=== PATIENT | female | born 1950 | race Caucasian/White ===

== ENCOUNTER 2017-10-21 16:39 | Inpatient (IN) | payer MEDICARE, BC ==
[~2017-10-21] VITALS: Ht 157.5 cm; Wt 73.9 kg
--- NOTE | 2017-10-21 16:42 | NUR ---
BBRA FROM HOME, ACCDG TO PT'S NIECE PT BECAME ALTERED AFTER TAKING SEROQUEL FIRST THE TIME 50MG. BS-15 IN THE FIELD. PT IS ALERT AND ORINETED X 3 UPON ASSESSMENT. ONLY COMPLAINS OF FEEELING SLEEPY AND WEAK, AND THAT SHE IS THIRSTY. PT GOWNED AND PLACED ON CONT CARDIAC AND POX MONITORING. ALL NEEDS ARE ATTENDED, KEPT COMFORTABLE. WILL CONT TO MONITOR
[2017-10-21] MEDS ORDERED: IV NS 0.9% 1,000 ML BAG IV ONE (17:30)
--- NOTE | 2017-10-21 17:31 | NUR ---
PT WENTTO Addendum: 10/21/17 at 1732 by CLAIRE PT WENT TO CAT SCAN
[2017-10-21 18:00] LABS: APPEARANCE,URINE Clear (CLEAR); BILIRUBIN,URINE Negative (NEGATIVE); BLOOD, URINE Negative Ery/uL (NEGATIVE); COLOR,URINE Yellow (YELLOW); KETONES,URINE Negative (NEGATIVE); LEUKOCYTE ESTERASE ,URINE Trace (NEGATIVE); NITRITE, URINE Negative (NEGATIVE); PH,URINE 5.5 (5.0-8.0); PROTEIN,URINE Negative (NEGATIVE); UGLUCOSE Negative (NEGATIVE); UROBILINOGEN,URINE 0.2 EU/dL (0.2)
[2017-10-21 18:02] LABS: BACTERIA,URINE Few /HPF (None Seen); RBC,URINE NONE SEEN /HPF (0-2); SQUAMOUS EPITHELIAL CELL,UR Few /HPF (None Seen)
[2017-10-21 18:05] LABS: BASOPHILS % (AUTO) 0.2 % (0.0-2.0); HEMATOCRIT 32 % (33-45); HEMOGLOBIN 10.6 g/dL (11.5-14.8); LYMPHOCYTES # (AUTO) 0.6 /CMM (0.8-4.8); LYMPHOCYTES % (AUTO) 11.1 % (20.0-44.0); MEAN CORPUSCULAR HEMOGLOBIN 30 PG (26.0-33.0); MEAN CORPUSCULAR HGB CONC 33 g/dl (31.0-36.0); MEAN CORPUSCULAR VOLUME 90 fL (82-100); MONOCYTES # (AUTO) 0.3 /CMM (0.1-1.30); MONOCYTES % (AUTO) 5.9 % (2.0-12.0); NEUTROPHILS # (AUTO) 4.7 /CMM (1.8-8.9); NEUTROPHILS % (AUTO) 81.8 % (43.0-81.0); PLATELET COUNT (AUTO) 259 /CMM (150-450); RDW COEFFICIENT OF VARIATION 15.8 (11.5-15.0); RED BLOOD CELL COUNT(AUTO) 3.53 MIL/uL (4.0-5.2); WHITE BLOOD COUNT (AUTO) 5.7 K/uL (4.3-11.0)
[2017-10-21 18:19] LABS: CALCIUM, SERUM 7.9 mg/dL (8.5-10.1); CARBON DIOXIDE 29 mmol/L (21-32); CHLORIDE 106 mmol/L (98-107); CREATININE 0.7 mg/dL (0.6-1.3); GLUCOSE 142 mg/dL (74-106); POTASSIUM 3.9 mmol/L (3.5-5.1); SODIUM SERUM 138 mmol/L (136-145); UREA NITROGEN, BLOOD 28 mg/dL (7-18)
[2017-10-21 18:20] LABS: INR 0.88 (0.85-1.15)
[2017-10-21 18:25] LABS: ALANINE AMINOTRANSFERASE 32 U/L (12-78); ALBUMIN 2.7 g/dL (3.4-5.0); ALCOHOL, BLOOD < 3 mg/dL (0-0); ALKALINE PHOSPHATASE 62 U/L (46-116); ASPARTATE AMINOTRANSFERASE 20 U/L (15-37); BILIRUBIN,DIRECT 0.1 mg/dL (0.0-0.2); BILIRUBIN,TOTAL 0.2 mg/dL (0.2-1.0); TOTAL PROTEIN, SERUM 5.6 g/dL (6.4-8.2)
[2017-10-21 18:34] LABS: ACETAMINOPHEN < 2 ug/ml (10-30); SALICYLATE 0.9 mg/dL (2.8-20.0)
--- NOTE | 2017-10-21 19:00 | NUR ---
RECIEVED REPORT FROM IRWIN LEACH FOR [facility].
--- NOTE | 2017-10-21 19:05 | NUR ---
PAGED DR. RONNA HEARD IS ENTERTAINMENT REPORTER
[2017-10-21] MEDS ORDERED: DIAZ5TAB PO (19:23)
[2017-10-21] MEDS ORDERED: PRED10TA PO (19:23)
[2017-10-21] MEDS ORDERED: TETR-66 PO (19:23)
[2017-10-21] MEDS ORDERED: SULF1TAB48 PO (19:23)
[2017-10-21] MEDS ORDERED: TRAZ-182 PO (19:23)
[2017-10-21] MEDS ORDERED: IV NS 0.9% 1,000 ML IV PRN (19:38)
[2017-10-21] MEDS ORDERED: ACETAMINOPHEN 325 MG TABLET PO PRN (20:00)
[2017-10-21] MEDS ORDERED: MAG HYDROX/AL HYDROX/SIMETH 30 ML UDC PO PRN (20:00)
[2017-10-21] MEDS ORDERED: ONDANSETRON HCL/PF 4 MG/2 ML VIAL IVP PRN (20:00)
[2017-10-21] MEDS ORDERED: MAGNESIUM HYDROXIDE 30 ML UDC PO PRN (20:00)
[2017-10-21] MEDS ORDERED: Z GUARD REMEDY 2 OZ OINT TP PRN (20:00)
--- NOTE | 2017-10-21 20:23 | NUR ---
REPORT GIVEN TO MARISSA STORY FOR [facility]
[2017-10-21 20:30] VITALS: BP 93/59
--- NOTE | 2017-10-21 20:45 | NUR ---
tele/rn notes RECEIVED PATIENT FROM ER ON A GURNEY ACCOMPANIED BY FAMILY, ASLEEP IN DEEP SLEEP BUT AROUSABLE TO TOUCH, W/ DX ENCEPHALOPATHY, MD FRIEND ATTENDING DR, MEDICATION REPORTED, PATIENT OBSERVE, MONITORED FOR SAFETY, SKIN CHECK, NOTED REDNESS IN HEELS AND SCAB ON LOWER BSCK, LEFT BREAST MASECTOMY, PATIENT FAMILY INVOLVE, REQUIRE MONITORING FOR OXYGENATION ON 3L OXYGEN VIA NC, FOR COMFORT MEASURES, LEFT EYE BLIND DM HX, WITH COMPOSING ROOM MACHINIST USE OF STEROIDSM LEFT BREAST RECONSTRUCTION HX AND LIPOSUCTION, BELONGINGS CHECK AND CELPHONE WITH LABELING MACHINE OPERATOR AND SHENA EVANGELISTA IS WITH PATIENT, THE BAG WAS BROUGHT HOME BY FAMILY.IV SITE ON LEFT HAND REPORTED SOME DISCOMFORT, REFUSE TO HAVE IV REINSERTED AT THIS TIME, ABLE TO SWALLOW FLUIDS, MD WAS MADE AWARE WILL MONITOR INTAKE. AND KEEP HYDRATED.
[2017-10-21 21:00] VITALS: BP 93/59
[2017-10-21] MEDS ORDERED: ENOXAPARIN SODIUM 40 MG/0.4 ML DISP.SYRIN SQ SCH (21:00)
[2017-10-21 23:46] VITALS: BP 90/54
[2017-10-22] VITALS: BP 90/54
[2017-10-22] MEDS ORDERED: predniSONE 10 MG TABLET PO SCH (00:30)
--- NOTE | 2017-10-22 02:12 | NUR ---
TELE/RN NOTES PHARMACY COMMUNICATED REGARDING NEED FOR CLARIFICATION ON DOSING OF CORTICOSTEROID, F/U IN AM WITH DR. BLOOM AT ,
[2017-10-22 03:52] VITALS: BP 113/73
[2017-10-22 03:55] VITALS: BP 113/73
--- NOTE | 2017-10-22 06:39 | NUR ---
306-2 TELE/RN NOTES PATIENT ABLE TO SLEEP DURING THE NIGHT, MONITORED FOR ANY CHANGES, RESPIRATIONS EVEN AND UNLABORED, ABLE TO VERBALIZE NEEDS, CALL LIGHTS WITHIN REACH, BED IN LOCL POSITION, KEEP COMFORTABLE, WILL ENDORSE TO AM RN FOR [facility].
[2017-10-22 06:46] LABS: BASOPHILS % (AUTO) 0.5 % (0.0-2.0); EOSINOPHILS % (AUTO) 1.6 % (0.0-6.0); HEMATOCRIT 36 % (33-45); HEMOGLOBIN 11.7 g/dL (11.5-14.8); LYMPHOCYTES # (AUTO) 0.8 /CMM (0.8-4.8); LYMPHOCYTES % (AUTO) 11.9 % (20.0-44.0); MEAN CORPUSCULAR HEMOGLOBIN 30 PG (26.0-33.0); MEAN CORPUSCULAR HGB CONC 33 g/dl (31.0-36.0); MEAN CORPUSCULAR VOLUME 92 fL (82-100); MONOCYTES # (AUTO) 0.5 /CMM (0.1-1.30); MONOCYTES % (AUTO) 6.6 % (2.0-12.0); NEUTROPHILS # (AUTO) 5.5 /CMM (1.8-8.9); NEUTROPHILS % (AUTO) 79.4 % (43.0-81.0); PLATELET COUNT (AUTO) 239 /CMM (150-450); RDW COEFFICIENT OF VARIATION 16.9 (11.5-15.0); RED BLOOD CELL COUNT(AUTO) 3.86 MIL/uL (4.0-5.2); WHITE BLOOD COUNT (AUTO) 6.9 K/uL (4.3-11.0)
[2017-10-22 07:17] LABS: CALCIUM, SERUM 8.5 mg/dL (8.5-10.1); CREATININE 0.8 mg/dL (0.6-1.3); PHOSPHORUS 4.5 mg/dL (2.5-4.9); POTASSIUM 4.6 mmol/L (3.5-5.1)
--- NOTE | 2017-10-22 07:30 | NUR ---
JOURNEYMAN GLAZIER NOTES PT IN BED, ASLEEP, RESPIRATIONS NORMAL, NO SIGN OF PAIN OR DISTRESS, EASY TO AROUSE, ALERT AND ORIENTED, NO COMPLAINT OF PAIN, PLAN OF CARE DISCUSSED WITH PT AND SON OVER THE PHONE, VERBALIZED UNDERSTANDING, NEEDS ATTENDED, CALL LIGHT WITHIN REACH.
[2017-10-22 08:00] VITALS: BP 105/63
[2017-10-22] MEDS ORDERED: TETRACYCLINE HCL 500 MG PO SCH (09:00)
[2017-10-22] MEDS ORDERED: SULFAMETH/TRIMETH 800/160 MG 1 UDTAB TABLET PO SCH (09:00)
[2017-10-22] MEDS ORDERED: TETRACYCLINE HCL 250 MG CAPSULE PO SCH ×2 (09:00)
--- NOTE | 2017-10-22 12:18 | NUR ---
MACHINE FITTER NOTES PT AWAKE, SITTING IN HER CHAIR, ALERT AND ORIENTED, DENIES PAIN, NOT IN DISTRESS, SEEN BY DR. BAL, PLAN OF CARE DISCUSSED WITH PT, VERBALIZED UNDERSTANDING, CALL LIGHT WITHIN REACH, NEEDS ATTEDED.
--- NOTE | 2017-10-22 14:00 | NUR ---
RN MS NOTES PT IN BED, AWAKE, ALERT, NOT IN PAIN OR DISTRESS, FAMILY MEMBERS CAME, ASSISTED PT IN DRESSING UP, PT AND FAMILY MEMBERS STATED THAT THEY ARE LEAVING AGAINST MEDICAL ADVICE AND THEY ARE GOING TO [facility], PT SIGNED AMA FORM, REMINDED PT TO FOLLOW UP WITH HER PRIMARY CARE PHYSICIAN, LEFT VIA PRIVATE CAR, DR. MALLY WEEKS.
== END 2017-10-22 13:50 | disposition left against medical advice (07) | DRG 917 ==
LOC: ER 16:40 → TELE 20:14 → MED 10-22 12:36
PROVIDERS: ADMIT Internal Medicine; ATTEND Internal Medicine
DX: T42.4X1A Poisoning by benzodiazepines, accidental (unintentional), initial encounter (principal); G92 Toxic encephalopathy; E27.40 Unspecified adrenocortical insufficiency; Y92.009 Unspecified place in unspecified non-institutional (private) residence as the place of occurrence of the external cause; E86.0 Dehydration; D64.9 Anemia, unspecified; Z85.3 Personal history of malignant neoplasm of breast; E11.9 Type 2 diabetes mellitus without complications; T43.591A Poisoning by other antipsychotics and neuroleptics, accidental (unintentional), initial encounter; Z92.21 Personal history of antineoplastic chemotherapy; Z90.12 Acquired absence of left breast and nipple
CPT/HCPCS: 36415; 70450-TC; 71045-TC; 80048-TC; 80076-TC; 80305; 81000-TC; 82533; 82962-TC; 83735-TC; 84100-TC; 84443-TC; 85025-TC; 85730-TC; 87081-TC; A4606; G0480; J1650; J7030; Z7610